=== PATIENT | male | born 1965 | race Caucasian/White ===

== ENCOUNTER 2019-08-22 12:12 | Outpatient (CLI) | payer OTHER, SELFPAY ==
--- NOTE | ~2019-08-22 | XR_ITS ---
XR shoulder LT min 2V 08/22/2019 12:38 Indication: Left shoulder pain Procedure: 4 views left shoulder Comparison: No prior studies for comparison. Findings: No fracture, subluxation or dislocation. No significant soft tissue abnormality. No radiopa que foreign bodies. There are mild degenerative changes of the glenohumeral joint. Impression: 1: Mild degenerative changes of the left glenohumeral joint. Reviewed, dictated and finalized at location A. Impression: 1: Mild degenerative changes of the left glenohumeral joint.
--- NOTE | ~2019-08-22 | XR_ITS ---
EXAMINATION: XR cervical spine min 6V EXAM DATE: 08/22/2019 12:38 INDICATION: Fall one month ago with persistent pain going down left arm. TECHNIQUE: Cervical spine frontal, lateral, lateral swimmers, and open-mouth odontoid projections. Additional lateral flexion and lateral extension projections obtained. There is no prior study for comparison. FINDINGS: There is mild reversal of the normal cervical lordosis which may be positional or spasm. Th ere is no evidence of acute cervical fracture. The odontoid process is intact. Pre-dens space is no rmal. Prevertebral soft tissue is normal. There are no soft tissue abnormalities identified. There is 2 mm retrolisthesis C5 on C6 which increases to 3 mm on the extension projection. The vertebral b odies are otherwise aligned. Mild to moderate disc disease at C5-6 and C6-7. Mild to moderate cervi adis arthropathy. Right upper lobe calcified granuloma. IMPRESSION: 1. No acute cervical findings. 2. Mild to moderate cervical spondylosis. Reviewed, dictated and finalized at location A.
== END 2019-08-22 12:13 | disposition home or self-care (01) ==
PROVIDERS: PCP Internal Medicine; Visit Provider Internal Medicine
DX: M47.812 Spondylosis without myelopathy or radiculopathy, cervical region (principal); M79.602 Pain in left arm; M19.012 Primary osteoarthritis, left shoulder; W19.XXXA Unspecified fall, initial encounter
CPT/HCPCS: 72052; 73030

== ENCOUNTER → 2020-01-19 11:57 | Outpatient (CLI) | payer OTHER, SELFPAY ==
--- NOTE | ~2020-01-19 | XR_ITS ---
EXAMINATION: XR shoulder LT min 2V EXAM DATE: 01/19/2020 12:21 INDICATION: M25.512 - anterior Pain in left shoulder/post fall . Initial encounter. TECHNIQUE: The following left shoulder projections obtained: frontal projection with internal rotatio n, frontal projection with external rotation, Grashey, and axillary (4+ views). Comparison is made to prior examination from 08/22/2019. FINDINGS: No evidence of left shoulder rotator cuff calcific tendinosis. There is mild glenohumeral and acromioclavicular joint primary osteoarthritis. There are no acute fractures or dislocations iden tified. There is no subcutaneous gas. The soft tissue is unremarkable. There are no radiopaque fo reign bodies. IMPRESSION: Mild left shoulder osteoarthritis. Reviewed, dictated and finalized at location B. 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
== END ==
PROVIDERS: PCP Internal Medicine; Visit Provider Internal Medicine
DX: M19.012 Primary osteoarthritis, left shoulder (principal)
CPT/HCPCS: 73030

== ENCOUNTER 2020-05-24 16:15 | Outpatient (CLI) | payer OTHER, SELFPAY | END 2020-05-24 16:16 | disposition home or self-care (01) | LOC: ANHCOVIDVC 16:16 | PROVIDERS: PCP Internal Medicine | DX: Z23 Encounter for immunization (principal) | CPT/HCPCS: 0001A; 91300 ==

== ENCOUNTER 2020-06-14 16:08 | Outpatient (CLI) | payer OTHER, SELFPAY | END 2020-06-14 16:09 | disposition home or self-care (01) | LOC: ANHCOVIDVC 16:08 | PROVIDERS: PCP Internal Medicine | DX: Z23 Encounter for immunization (principal) | CPT/HCPCS: 0002A; 91300 ==

== ENCOUNTER 2021-07-15 14:02 | Outpatient (CLI) | payer OTHER, SELFPAY | END 2021-07-15 14:03 | disposition home or self-care (01) | LOC: ANHAUDIO 14:03 | PROVIDERS: PCP Emergency Medicine; Visit Provider Emergency Medicine | DX: H90.3 Sensorineural hearing loss, bilateral (principal); Z97.4 Presence of external hearing-aid | CPT/HCPCS: 92557; 92567 ==

== ENCOUNTER 2021-08-26 08:42 | Outpatient (CLI) | payer OTHER, SELFPAY ==
--- NOTE | ~2021-08-26 | US_ITS ---
EXAMINATION: US art doppler w press LE BI DATE: 08/26/2021 09:56 INDICATION: Peripheral vascular disease presenting with claudication. Diabetes, hypercholesterolemia and smoking. TECHNIQUE: Segmental pressures and plethysmographic and Doppler waveforms of the brachial and lower e xtremity arteries were obtained. COMPARISON: None. FINDINGS: Right and left brachial artery pressures of 141 mm Hg and 140 mm Hg, respectively, are concordant (no rmal difference <= 30 mmHg). The right and left high-thigh pressure indices are 0.96 and 1.00, respec tively (normal > 1.2). The right ankle-brachial index (LEONA) is 0.71 (normal >= 0.9-1). The right great toe-brachial index (T BI) is 0.38 (normal >= 0.6-0.8). The right lower extremity segmental pressure gradients are normal (n ormal gradients <= 20-30 mmHg between adjacent levels on the same leg or the same levels on the two l egs). Arterial waveforms are biphasic with brisk systolic upstrokes throughout the arteries of the ri ght lower limb. The left LEONA is 0.75. The left TBI is 0.39. The left lower extremity segmental pressure gradients are increased between the left high and low thigh. Arterial waveforms are biphasic with brisk systolic u pstrokes throughout the arteries of the left lower limb. IMPRESSION: 1. Arterial occlusive disease to bilateral lower limbs with moderately decreased right and mild to mo derately decreased left ABIs and TBIs. Reviewed, dictated and finalized at location A. IMPRESSION: 1. Arterial occlusive disease to bilateral lower limbs with moderately decrease d right and mild to moderately decreased left ABIs and TBIs.
== END 2021-08-26 08:43 | disposition home or self-care (01) ==
PROVIDERS: PCP Emergency Medicine; Visit Provider Emergency Medicine
DX: I73.9 Peripheral vascular disease, unspecified (principal)
CPT/HCPCS: 93923

== ENCOUNTER 2021-10-24 10:30 | Outpatient (RCR) | payer OTHER, SELFPAY | END 2021-10-24 23:59 | disposition home or self-care (01) | LOC: ANHAUDIO 10:30 | PROVIDERS: PCP Emergency Medicine; Referring Provider Emergency Medicine; Visit Provider Emergency Medicine | DX: Z46.1 Encounter for fitting and adjustment of hearing aid (principal) | CPT/HCPCS: 99199; V5160; V5261 ==

== ENCOUNTER 2023-05-28 11:14 | Outpatient (CLI) | payer OTHER, SELFPAY ==
[2023-05-28 14:39] LABS: Alanine Aminotransferase 25 U/L (6-50); Albumin Level 4.2 g/dL (3.5-5.1); Alkaline Phosphatase 87 U/L (38-126); Anion Gap 4 mmol/L (8-16); Aspartate Amino Transferase 35 U/L (17-59); Bilirubin,Total 0.6 mg/dL (0.2-1.3); Blood Urea Nitrogen 15 mg/dL (9-20); Calcium 9.4 mg/dL (8.4-10.2); Carbon Dioxide 33 mmol/L (22-30); Chloride 101 mmol/L (98-107); Cholesterol 150 mg/dL (0-200); Estimated Glomerular Filt Rate > 60; Glucose 218 mg/dL (65-110); HDL Direct 32 mg/dL; Potassium 4.7 mmol/L (3.4-5.0); Sodium 138 mmol/L (137-145); Triglycerides 132 mg/dL (<150)
[2023-05-28 14:49] LABS: Basophils Absolute Auto 0.1 K/mm3 (0.0-0.1); Basophils Percent Auto 0.6 % (0.2-1.2); Eosinophils Absolute Auto 0.3 K/mm3 (0-0.3); Eosinophils Percent Auto 3.9 % (0-4.4); Hematocrit 49.4 % (42.0-52.0); Hemoglobin 16.1 g/dL (14.0-18.0); Immature Granulocyte Absolute 0.04 K/mm3 (0.00-0.031); Immature Granulocyte Percent A 0.5 % (0-0.5); LDL Cholesterol Direct 101 mg/dL; Lymphocytes Absolute Auto 2.29 K/mm3 (0.9-3.2); Lymphocytes Percent Auto 26.6 % (18.3-44.2); Mean Corpuscular HGB Conc 32.6 g/dl (32-36); Mean Corpuscular Hemoglobin 30.4 pg (26-34); Mean Corpuscular Volume 93.4 fl (80-100); Mean Platelet Volume 9.6 fl (7.4-10.4); Monocytes Absolute Auto 0.7 K/mm3 (0.1-0.6); Monocytes Percent Auto 8.1 % (2.6-8.5); Neutrophils Absolute Auto 5.2 K/mm3 (1.3-6.7); Neutrophils Percent Auto 60.3 % (45.5-73.1); Platelet Count Result 252 k/mm3 (150-375); Red Blood Count 5.29 M/mm3 (4.6-6.20); Red Cell Distribution Width 13.7 % (11.5-14.5); White Blood Count 8.6 K/mm3 (4.5-10.0)
[2023-05-28 15:15] LABS: Vitamin D 25 Hydroxy 41.7 ng/mL
== END 2023-05-28 11:15 | disposition home or self-care (01) ==
LOC: ANHGOSHLAB 11:15
PROVIDERS: PCP Family Medicine; Visit Provider Nurse Practitioner Family
DX: Z00.00 Encounter for general adult medical examination without abnormal findings (principal); E78.5 Hyperlipidemia, unspecified; E53.8 Deficiency of other specified B group vitamins; R06.83 Snoring; G47.00 Insomnia, unspecified; G47.10 Hypersomnia, unspecified; E55.9 Vitamin D deficiency, unspecified
CPT/HCPCS: 36415; 80053; 80061; 82306; 82607; 85025

== ENCOUNTER 2025-02-13 17:10 | Emergency (ER) | payer OTHER, SELFPAY ==
--- NOTE | ~2025-02-13 | XR_ITS ---
EXAMINATION: XR foot RT min 3V, 02/13/2025 17:32 GUNNER'S MATE G HISTORY: pain and swelling COMPARISON: No comparisons available. Findings: No acute fracture or malalignment. No significant degenerative changes. Soft tissues unremarkable. Impression: No acute fracture or malalignment. Reviewed, dictated and finalized at location P. ER'S MATE G Impression: No acute fracture or malalignment.
--- NOTE | ~2025-02-13 | XR_ITS ---
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 Findings: There is a nondisplaced fracture of the medial malleolus. There is a remote corticated fracture of the lateral malleolus. There is a nondisplaced fracture of the distal fibula. No significant degenerative changes. Soft tissue swelling. Impression: Fractures detailed above Reviewed, dictated and finalized at location P. S DEVELOPMENT EXECUTIVE Impression: Fractures detailed above
[2025-02-13 17:22] VITALS: BP 159/88; PULSE 71; RESP 16; TEMP 35.7; O2SAT 100
--- NOTE | 2025-02-13 17:25 | ED.LOWEXIN ---
HPI - Extremity Injury (Lower) General Chief Complaint: Extremity Injury, Lower Stated Complaint: Right Ankle/Foot Pain Time Seen by Provider: 02/13/25 17:25 Source: patient, RN notes reviewed and old records reviewed Mode of arrival: ambulatory Limitations: no limitations History of Present Illness HPI Narrative: 59-year-old male presents to the [facility] with right ankle and foot pain as well as bruising and swelling. Patient states that on Wednesday, 3 days ago stepped in a snowbank, rolled his ankle in firstly and landed on his foot. No treatment prior to arrival Onset (ago): day(s) (3) Related Data Home Medications ?Medication ?Instructions ?Recorded ?Confirmed ?Last Taken ?Type fluticasone propionate 50 1 spray intranasal DAILY PRN 06/08/24 11/15/24 Unknown History mcg/actuation nasal spray,suspension (Flonase Allergy Relief) Allergies Allergy/AdvReac Type Severity Reaction Status Date / Time No Known Allergies Allergy Verified 02/13/25 17:12 Review of Systems Review of Systems: All systems reviewed & are unremarkable except as noted in HPI and below Constitutional: Constitutional: Reports no additional constitutional complaints ENT: Reports system reviewed and no additional complaints, except as documented Cardiovascular: Cardiovascular: Reports no additional cardiovascular complaints, Denies chest pain and Denies dyspnea Respiratory: Respiratory: Reports no additional respiratory complaints, Denies chest congestion, Denies cough and Denies dyspnea Musculoskeletal: Musculoskeletal: Reports as per HPI Integumentary/Breasts: Skin/Breast: Reports system reviewed and no additional complaints, except as docu [facility] Past Medical History Medical History Weakness of both lower limbs Middle ear effusion Depression Hypersomnia Snoring GERD without esophagitis Environmental allergies Anxiety Vitamin D deficiency Chronic low back pain Peripheral vascular disease Hearing loss Wears hearing aid HLD (hyperlipidemia) HTN (hypertension) Urticaria Excessive daytime sleepiness Loud snoring Ringing in ears Hemorrhoids Mumps FHx: migraine headaches Hernia Glaucoma Chicken pox Arthritis COPD (chronic obstructive pulmonary disease) with chronic bronchitis Cervical spondylosis with radiculopathy Diabetic peripheral neuropathy Type 2 diabetes mellitus with hyperglycemia, with long-term current use of insulin Restless legs syndrome Surgical History Surgical History History of skin graft Family History Family History Mother Hypertension Sibling Asthma Grandparent Diabetes mellitus Other Family history of malignant neoplasm of bone Family history of mental disorder Social History Social History Smoking packs per day: 1 Smoking cigarettes per day: 20.0 Years smoked: 44 Smoking pack-years: 44.00 Smoking status: Current every day smoker Tobacco type: cigarettes Second hand tobacco smoke exposure: No Alcohol intake: former Alcohol use details: stopped 1999. Substance use: current Substance use type: marijuana Lack of Transportation: No Lack of Food: Never True Current Housing: I Have Housing Concerned About Future Housing: No Difficulty Paying Gas/Electric Bills: YES Difficulty Paying for Meds: No Currently Unemployed: YES Education: High School Diploma/GED Difficulty w/ Childcare or Family Care: No Living arrangements: alone Occupation/Education: unemployed Additional occupation/education comments: Disability Gender identity (if verbalized by the patient): Male Comments At the time of my signature, I reviewed and agree with the nursing past medical, surgical, social, and family history. There is no relevant family history pertinent to the patient complaint. Exam Const: General: cooperative, healthy appearing, comfortable, no acute distress, well developed, alert and well nourished Nutritional Appearance: well nourished and obese Orientation/consciousness: patient oriented x3 Limitations: no limitations HENMT: Head: normal to inspection Eyes: General: appearance normal, both eyes and all related structures Alignment and Position: alignment normal Neck: Neck: normal visual inspection, full ROM, no lymphadenopathy and no meningeal signs Chest: Chest palpation & inspection: normal inspection of the chest Resp: Effort & Inspection: normal respiratory effort and able to speak in complete sentences Cardio: Rate: regular rate Skin: General skin exam: no rashes or lesions noted Neuro: General: patient oriented x3, moves all extremities and no meningeal signs Cognition (Neuro): normal cognition Speech: normal speech Extrem: General: normal to inspection, full ROM and capillary refill normal Right lower extremity: ankle Details: tenderness Location: of the lateral malleolus and of the medial malleolus, swelling, abnormal ROM Details: pain with active ROM and ecchymosis; no abrasions, no lacerations and no crepitus and foot Details: normal capillary refill, tenderness Location: of the dorsal foot Location: distally, toes with normal ROM, ecchymosis and vascular exam Details: dorsalis pedis pulse present Psych: Appearance: grossly normal and well kempt Mental Status: mental status grossly normal Speech and movement: Normal speech and movement present and Clear speech present Affect: normal affect Attitude: cooperative Course Course Level of Care: Express Care Visit Vital Signs Vital signs: Vital Signs Temperature 96.2 F L 02/13/25 17:22 Pulse Rate 71 02/13/25 17:22 Respiratory Rate 16 02/13/25 17:22 Blood Pressure 159/88 H 02/13/25 17:22 Pulse Oximetry 100 02/13/25 17:22 Oxygen Delivery Room Air 02/13/25 17:22 Temperature 96.2 F L 02/13/25 17:22 Pulse Rate 71 02/13/25 17:22 Respiratory Rate 16 02/13/25 17:22 Blood Pressure 159/88 H 02/13/25 17:22 Pulse Oximetry 100 02/13/25 17:22 Oxygen Delivery Room Air 02/13/25 17:22 reviewed MDM MDM Narrative Medical decision making narrative: due to multiple fractures, lateral malleolus, distal fibula, medial malleolus discussed putting a splint on for stability and comfort. Patient is declining. Discussed risks of the fractures becoming dislocated. Patient verbalized understanding. Patient is concerned because it is his right foot. Has no one else to drive him. patient 3 day post injury to the foot and ankle. X-ray show fractures. Wanting to place a splint, patient is declining at this time, placed Errol wrap discussed the risks of dislocating the fractures patient is appropriate to follow-up with ortho Differential Diagnosis Differential Diagnosis: Differential diagnostic considerations for lower extremity injury include ankle sprain/strain, acute internal derangement of knee, fracture of femur, fracture of hip, puncture wound of foot, fracture of toe, fracture of ankle, tendon rupture (achilles/patellar/quadriceps). Imaging Data Radiologist's impression: ITS Impressions Ankle X-Ray 02/13/25 17:44 Impression: Fractures detailed above Foot X-Ray 02/13/25 17:48 Impression: No acute fracture or malalignment. EXAMINATION: XR ankle RT min 3V, 02/13/2025 17:32 BENEFIT AUTHORIZER HISTORY: pain COMPARISON: No comparisons available. Findings: There is a nondisplaced fracture of the medial malleolus. There is a remote corticated fracture of the lateral malleolus. There is a nondisplaced fracture of the distal fibula. No significant degenerative changes. Soft tissue swelling. Impression: Fractures detailed above EXAMINATION: XR foot RT min 3V, 02/13/2025 17:32 BENEFIT AUTHORIZER HISTORY: pain and swelling COMPARISON: No comparisons available. Findings: No acute fracture or malalignment. No significant degenerative changes. Soft tissues unremarkable. Impression: No acute fracture or malalignment. Critical Care Time Critical Care Time Critical Care Time: No Discharge Plan Discharge Clinical Impression: Nondisplaced fracture of medial malleolus, Nondisplaced fracture of distal end of fibula, Contusion of foot, Fall, Elevated blood pressure reading Patient Disposition: Home Condition: Stable Instructions: Antibiotic Form, Ankle Fracture (DC), Foot Contusion (ED) Additional Instructions: take Tylenol as needed for pain rest, ice and elevate every 2-3 hours for 15-20 minutes Patient Language: Divehi Prescriptions: No Action venlafaxine [Effexor XR] 75 mg capsule,extended release 24hr 75 mg PO DAILY Qty: 30 6RF Rx Instructions: may increase the dose to 150 mg or 2 capsules after 3 weeks if well tolerated glucose [Dex4 Glucose] 4 gram tablet,chewable 16 g PO Q15M PRN (Reason: hypoglycemia) Qty: 60 1RF Rx Instructions: until symptoms of low blood sugar are controlled Gvoke HypoPen 2-Pack 1 mg/0.2 mL auto-injector 1 mg subcut ONCE Qty: 0.4 4RF Rx Instructions: may repeat once after 15 minutes if no response (DME) lancets 33 gauge misc See Rx Instructions .ROUTE .MEDSUPPLY Qty: 300 3RF Rx Instructions: Use to check BS 3 times daily cholecalciferol (vitamin D3) 25 mcg (1,000 unit) capsule 25 mcg PO DAILY Qty: 90 4RF fluticasone propionate [Flonase Allergy Relief] 50 mcg/actuation spray,suspension 1 spray intranasal DAILY PRN (DME) FreeStyle Ochoa 3 Plus Sensor Device See Rx Instructions .ROUTE .MEDSUPPLY Qty: 6 2RF Rx Instructions: Use to monitor glucose Humulin R U-500 (Conc) Kwikpen 500 unit/mL (3 mL) insulin pen 220 unit subcut DAILY Qty: 42 1RF Rx Instructions: Take 130 units before breakfast 90 units before dinner (DME) pen needle, diabetic [TRUEplus Pen Needle] 32 gauge x 5/32 needle See Rx Instructions .ROUTE .COMPLEX Qty: 100 1RF Dose Instruction: USE WITH INSULIN INJECTIONS TWICE DAILY Rx Instructions: USE WITH INSULIN INJECTIONS TWICE DAILY Dulera 100-5 mcg/actuation HFA aerosol inhaler 2 puff inhalation Q12H Qty: 13 1RF (DME) blood-glucose meter [Contour Plus Blue Meter] [facility] [place] See Rx Instructions .Route Qty: 1 0RF Rx Instructions: use to monitor blood sugars (DME) Contour Plus Test Strip Strip See Rx Instructions .Route Qty: 300 1RF Rx Instructions: check blood sugars 3 times a day amlodipine [Norvasc] 10 mg tablet 10 mg PO DAILY Qty: 90 1RF triamterene-hydrochlorothiazid 75-50 mg tablet 1 tablet PO DAILY Qty: 90 1RF metoprolol succinate 100 mg tablet extended release 24 hr 100 mg PO DAILY Qty: 90 1RF famotidine 40 mg tablet See Rx Instructions .ROUTE .COMPLEX Qty: 90 2RF Dose Instruction: TAKE 1 TABLET BY MOUTH THREE TIMES DAILY Rx Instructions: TAKE 1 TABLET BY MOUTH THREE TIMES DAILY valsartan 40 mg tablet See Rx Instructions .ROUTE .COMPLEX Qty: 90 1RF Dose Instruction: Take 1 tablet by mouth once daily Rx Instructions: Take 1 tablet by mouth once daily duloxetine 60 mg capsule,delayed release(DR/EC) 60 mg PO BID Qty: 180 1RF rosuvastatin 40 mg tablet See Rx Instructions .ROUTE .COMPLEX Qty: 90 3RF Dose Instruction: Take 1 tablet by mouth once daily Rx Instructions: Take 1 tablet by mouth once daily pioglitazone 15 mg tablet See Rx Instructions .ROUTE .COMPLEX Qty: 90 1RF Dose Instruction: Take 1 tablet by mouth once daily Rx Instructions: Take 1 tablet by mouth once daily (DME) lancets [Microlet Lancet] [facility] [place] See Rx Instructions .ROUTE .COMPLEX Qty: 300 0RF Dose Instruction: USE TO CHECK BLOOD SUGAR THREE TIMES DAILY Rx Instructions: USE TO CHECK BLOOD SUGAR THREE TIMES DAILY lorazepam 1 mg tablet 1 mg PO BID PRN (Reason: anxiety) Qty: 30 0RF Follow-up/Referrals: Janae Acosta MD [Primary Care Provider, [facility]] - 2 Weeks Clinical Impression: Elevated blood pressure reading; Contusion of foot; Nondisplaced fracture of distal end of fibula; Nondisplaced fracture of medial malleolus Diego Galan MD [Physician, Orthopedics] - 3 Days Clinical Impression: Contusion of foot; Nondisplaced fracture of distal end of fibula; Nondisplaced fracture of medial malleolus Time of Disposition: 18:07
[2025-02-13] MEDS: ACETAMINOPHEN 500 MG TABLET 1000 MG PO (18:15)
== END 2025-02-13 18:10 | disposition home or self-care (01) ==
PROVIDERS: Emergency Provider Nurse Practitioner; PCP Family Medicine
DX: S82.54XA Nondisplaced fracture of medial malleolus of right tibia, initial encounter for closed fracture (principal); S82.831A Other fracture of upper and lower end of right fibula, initial encounter for closed fracture; X50.9XXA Other and unspecified overexertion or strenuous movements or postures, initial encounter; S90.31XA Contusion of right foot, initial encounter; R03.0 Elevated blood-pressure reading, without diagnosis of hypertension; F17.210 Nicotine dependence, cigarettes, uncomplicated; F12.90 Cannabis use, unspecified, uncomplicated; I10 Essential (primary) hypertension; E78.5 Hyperlipidemia, unspecified; J44.9 Chronic obstructive pulmonary disease, unspecified; M19.90 Unspecified osteoarthritis, unspecified site; E11.51 Type 2 diabetes mellitus with diabetic peripheral angiopathy without gangrene; E11.42 Type 2 diabetes mellitus with diabetic polyneuropathy; E11.39 Type 2 diabetes mellitus with other diabetic ophthalmic complication; H42 Glaucoma in diseases classified elsewhere; Z79.4 Long term (current) use of insulin; G25.81 Restless legs syndrome; K21.9 Gastro-esophageal reflux disease without esophagitis; F41.9 Anxiety disorder, unspecified; F32.A Depression, unspecified; E55.9 Vitamin D deficiency, unspecified
CPT/HCPCS: 73610; 73630; 99214; A9270; G0463